=== PATIENT | female | born 1980 | race Hispanic/Latino ===

== ENCOUNTER 2019-02-22 08:32 | Outpatient (CLI) | payer BC ==
--- NOTE | 2019-02-22 09:51 | MRI ---
EXAM: MRI left knee PROVIDED CLINICAL HISTORY: Pain COMPARISON: None FINDINGS: Partially visualized intramedullary femoral nathalie, producing susceptibility artifact and magnetic field inhomogeneity which limits the examination. The anterior cruciate ligament, posterior cruciate ligament, medial collateral ligament and lateral c ollateral ligament is complex demonstrate an intact MR appearance, as does the extensor mechanism as visualized. The medial and lateral menisci demonstrate no definite evidence for tear. No definite focal full-thickness articular cartilage defect is apparent. The amount of fluid within the knee joint appears physiologic. Regional marrow and muscular signal unaffected by metallic susceptibility artifact appears normal. IMPRESSION: No evidence for internal derangement with limitations as described.
== END 2019-02-22 08:33 | disposition home or self-care (01) ==
LOC: SCSMRI 08:32
PROVIDERS: ATTEND Family Medicine
DX: M25.562 Pain in left knee (principal)

== ENCOUNTER 2022-11-07 16:35 | Outpatient (CLI) | payer BC, OTHER | END 2022-11-07 16:36 | disposition home or self-care (01) | LOC: SCSRAD 16:35 | PROVIDERS: ATTEND Nurse Practitioner Family | DX: M54.50 Low back pain, unspecified (principal); M54.2 Cervicalgia; M47.817 Spondylosis without myelopathy or radiculopathy, lumbosacral region | CPT/HCPCS: 72040; 72100 ==

== ENCOUNTER 2022-11-11 10:47 | Emergency (ER) | payer BC | END 2022-11-11 12:28 | disposition home or self-care (01) | LOC: ERS 10:47 | DX: S09.90XA Unspecified injury of head, initial encounter (principal); W22.8XXA Striking against or struck by other objects, initial encounter | CPT/HCPCS: 70450 ==